=== PATIENT | male | born 1965 | race Caucasian/White ===

== ENCOUNTER 2020-03-18 19:07 | Emergency (ER) | payer OTHER ==
[2020-03-18] MEDS ORDERED: Lidocaine 2% 20 ML MDV INJECT ONE (19:52)
--- NOTE | 2020-03-18 20:28 | EDM.PDOC ---
ED HPI GENERAL MEDICAL PROBLEM - General Chief Complaint: Laceration Stated Complaint: CUT TO RT TWO FINGERS Time Seen by Provider: 03/18/20 20:20 Source of Information: Reports: Patient, Family, Old Records, RN History Limitations: Reports: No Limitations - History of Present Illness INITIAL COMMENTS - FREE TEXT/NARRATIVE: 55 yo male got fingers of R hand in a power saw before arrival. Tetanus is UTD. Has lacerations of R 2nd and 3rd fingers. 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: Reports: Other (see below) (none) Right Hand Pain Score (Numeric/FACES): 3 - Related Data Allergies Allergy/AdvReac Type Severity Reaction Status Date / Time No Known Allergies Allergy Verified 03/18/20 19:41 Home Meds: Home Meds NK [No Known Home Meds] 12/21/18 [History] Past Medical History HEENT History: Reports: Hard of Hearing, Impaired Vision - Past Surgical History Head Surgeries/Procedures: Reports: None HEENT Surgical History: Reports: Other (See Below) Other HEENT Surgeries/Procedures: ear surguries Social & Family History - Tobacco Use Smoking Status *Q: Never Smoker Second Hand Smoke Exposure: No - Caffeine Use Caffeine Use: Reports: None - Recreational Drug Use Recreational Drug Use: No ED ROS GENERAL - Review of Systems Review Of Systems: See Below Constitutional: Reports: No Symptoms Musculoskeletal: Reports: Other (R 3rd finger pain) Skin: Reports: Wound (R 3rd and 4th fingers) Neurological: Reports: No Symptoms ED EXAM, SKIN/RASH Exam: See Below Exam Limited By: No Limitations General Appearance: Alert, WD/WN, No Apparent Distress, Obese Extremities: No: Normal Inspection (R 3rd and 2nd fingers with multiple, irreg lac's. Both finger nails are damaged, but at least partially intact. ), Limited Range of Motion Neurological: Alert, Oriented, CN II-XII Intact, Normal Cognition, No Motor/Sensory Deficits Psychiatric: Normal Affect, Normal Mood ED SKIN PROCEDURES - Laceration/Wound Repair Right Distal Digit - 3rd (Middle) Appearance: Subcutaneous, Irregular, Mildly Contaminated Distal NVT: Neuro & Vascular Intact, No Tendon Injury Anesthetic Type: Digital (14 ml of 2% lidocaine) Local Anesthesia - Lidocaine (Xylocaine): 2% Plain Local Anesthetic Volume: Other (14) Skin Prep: Saline Exploration/Debridement/Repair: Wound Explored Closed with: Sutures Lac/Wound length In cm: 2 Suture Size: 5-0 # of Sutures: 7 Suture Type: Nylon, Interrupted, Simple Drain Placement: No Sterile Dressing Applied: Nurse Tetanus Status Addressed: Yes Complications: No Right Distal Digit - 2nd (Index) Appearance: Subcutaneous, Irregular, Mildly Contaminated Distal NVT: Neuro & Vascular Intact, No Tendon Injury Anesthetic Type: Digital Local Anesthesia - Lidocaine (Xylocaine): 2% Plain Local Anesthetic Volume: Other (total of 14 ml between the 2 fingers) Skin Prep: Saline Exploration/Debridement/Repair: Wound Explored, Minimal Debridement Closed with: Sutures Lac/Wound length In cm: 2 Suture Size: 5-0 # of Sutures: 3 Suture Type: Nylon, Interrupted, Simple Drain Placement: No Sterile Dressing Applied: Nurse Tetanus Status Addressed: Yes Complications: No Course - Vital Signs Last Recorded V/S: Last Vital Signs Temp 36.7 C 03/18/20 19:40 Pulse 98 03/18/20 19:40 Resp 16 03/18/20 19:40 BP 132/92 H 03/18/20 19:40 Pulse Ox 93 L 03/18/20 19:40 - Orders/Labs/Meds Orders: Active Orders 24 hr Category Date Time Status Fingers Third Digit Rt F7 [CR] Stat Exams 03/18/20 20:27 Ordered Meds: Medications Discontinued Medications Generic Name Dose Route Start Last Admin Trade Name Wen PRN Reason Stop Dose Admin Cephalexin 750 mg 03/18/20 20:39 Keflex PO 03/18/20 20:40 ONETIME ONE Lidocaine HCl 15 ml 03/18/20 19:52 03/18/20 19:58 Xylocaine 2% INJECT 03/18/20 19:53 15 ml ONETIME ONE Administration - Radiology Interpretation Free Text/Narrative:: R long finger X-ray-Fx distal phalanx of long finger Departure - Departure Time of Disposition: 21:20 Disposition: Home, Self-Care 01 Condition: Fair Clinical Impression: Finger laceration Qualifiers: Encounter type: initial encounter Finger: middle finger Damage to nail status: with damage Foreign body presence: without foreign body Laterality: right Qualified Code(s): S61.312A - Laceration without foreign body of right middle finger with damage to nail, initial encounter Phalanx, distal fracture of finger Qualifiers: Encounter type: initial encounter Finger: middle finger Fracture type: open Fracture alignment: nondisplaced Laterality: right Qualified Code(s): S62.662B - Nondisplaced fracture of distal phalanx of right middle finger, initial encounter for open fracture - Discharge Information *PRESCRIPTION DRUG MONITORING PROGRAM REVIEWED*: No *COPY OF PRESCRIPTION DRUG MONITORING REPORT IN PATIENT MARCO: No Instructions: Finger Fracture, Adult, [id number], Laceration Care, Adult, [id number] Referrals: PCP,None [Primary Care Provider] - Forms: ED Department Discharge Additional Instructions: Clean wounds twice daily with soap and water OR 1/2 water and 1/2 peroxide. Dry. Apply antibiotic ointment and a new dressing. Keep wounds elevated to reduce pain and bleeding. Keep wounds clean at least 3 days. Take ibuprofen and/or acetaminophen for pain relief. May substitute Sentinel for the acetaminophen if more pain relief is needed. Stitches out in 9-10 days. Return sooner for signs of infection. Take cephalexin for prevention of infection. Keep the long finger splinted for at least a month for protection due to your fracture. Sepsis Event Note (ED) - Evaluation Sepsis Screening Result: No Definite Risk - Focused Exam Vital Signs: Vital Signs Temp Pulse Resp BP Pulse Ox 03/18/20 19:40 36.7 C 98 16 132/92 H 93 L 03/18/20 19:38 36.7 C 98 16 132/92 H 93 L - My Orders Last 24 Hours: My Active Orders 03/18/20 20:27 Fingers Third Digit Rt F7 [CR] Stat - Assessment/Plan Last 24 Hours: My Active Orders 03/18/20 20:27 Fingers Third Digit Rt F7 [CR] Stat
[2020-03-18] MEDS ORDERED: Cephalexin 250 MG Cap PO ONE (20:39)
[2020-03-18] MEDS ORDERED: Bacitracin Oint 1 GM U/D Packet TOP ONE (21:04)
--- NOTE | 2020-03-19 08:52 | CR ---
Fingers Third Digit Rt F7 CLINICAL HISTORY: Saw injury FINDINGS: There is soft tissue swelling and disruption of the distal third digit. There is an oblique fracture of the distal phalanx IMPRESSION: Laceration and fracture at the distal third digit
== END 2020-03-18 21:33 | disposition home or self-care (01) ==
LOC: JP.ED 19:07
DX: S62.662B Nondisplaced fracture of distal phalanx of right middle finger, initial encounter for open fracture (principal); S61.210A Laceration without foreign body of right index finger without damage to nail, initial encounter; W31.2XXA Contact with powered woodworking and forming machines, initial encounter
CPT/HCPCS: 12002; 73140; 99283; A9270; J2001